=== PATIENT | female | born 1980 | race Caucasian/White ===

== ENCOUNTER 2020-10-13 17:08 | Emergency (ER) | payer MEDICAID, MEDICARE, OTHER ==
[~2020-10-13] VITALS: Ht 152.4 cm; Wt 98.2 kg
--- NOTE | 2020-10-13 17:21 | NUR ---
PT BIBA. PER EMS PT HAD AN ALLERGIC RX WITH UNKNOWN CAUSE. PT DENIES ANY NEW FOODS/ MEDICATIONS/ TRIGGERS. PT WAS GIVEN 2 ALBUTEROL TREATMENTS AND 25MG BENADRYL IM. PT RESTING IN GURNEY, MONITORING IN PLACE, EKG DONE, PT REPORTS FEELING NO DIFFICULTY BREATHING, NO FACIAL EDEMA, NADN AT THIS TIME, WCTM.
[2020-10-13] MEDS ORDERED: prednisOLONE 15 MG/5 ML ORAL SOLN PO ONE (17:30)
[2020-10-13] MEDS ORDERED: ONDANSETRON 2MG/ML, 2ML ONE (18:20)
[2020-10-13] MEDS ORDERED: ONDANSETRON 2MG/ML, 2ML IVPush ONE (18:30)
[2020-10-13] MEDS ORDERED: PLEASE ENTER ALLERGIES MC SCH (18:30)
--- NOTE | 2020-10-13 19:28 | NUR ---
TASK RN: PT W/ DOWN SYNDROME AND UP FOR DC. PT STATES HER EPIDEMIOLOGY INVESTIGATOR RIN ASSISTS PT W/ TRANSPORTATION. ATTEMPTED TO CONTACT RIN AT [phone]. NO ANSWER. MESSAGE LEFT. HUGO LAURENT NOTIFIED OF PT. STATES THE ONLY THING STAFF CAN DO FOR A SAFE DC IS WAIT UNTIL PATRIA, EPIDEMIOLOGY INVESTIGATOR CALLS BACK. BRITT, PRIMARY RN AND HANS DATA DELIVERABLES MANAGER NOTIFIED.
--- NOTE | 2020-10-13 20:18 | NUR ---
TASK RN: RN SPOKE TO LONG TERMTAR HEAT EXCHANGER CLEANER REGARDING DC INSTRUCTIONS AND REVIEWED, AIR POLLUTION COMPLIANCE INSPECTOR VERBALIZED UNDERSTANDING, SPOKE WITH PT WELL AND PT VERBALIZED UNDERSTANDING WELL. PT NAD, DRESSED AND OKAY TO TAKE TAXI HOME PER CAREGIVER. AMBULATORY WITH STEADY GAIT, DENIES ADDITIONAL NEEDS, NO PERSONAL BELONGINGS LEFT IN ROOM AFTER DC
[2020-10-13 20:19] VITALS: BP 119/56
== END 2020-10-13 20:21 | disposition home or self-care (01) ==
LOC: ED 19:39
DX: T78.2XXA Anaphylactic shock, unspecified, initial encounter (principal); T78.49XA Other allergy, initial encounter; J98.01 Acute bronchospasm; M79.89 Other specified soft tissue disorders; R94.31 Abnormal electrocardiogram [ECG] [EKG]; X58.XXXA Exposure to other specified factors, initial encounter
CPT/HCPCS: 93005; 96374; 99283; J2405; J7512